=== PATIENT | male | born 1970 | race Caucasian/White ===

== ENCOUNTER 2018-11-24 21:13 | Emergency (ER) | payer MEDICARE, BC ==
--- NOTE | 2018-11-24 21:16 | UC ---
Laceration HPI - HPI Summary HPI Summary: 47 yo male presents with laceration to his left hand. He tells me that he lost his balance earlier today around 1500 and put his hand out against the wall to catch himself. His hand scraped against a screw and he sustained a laceration to his left palm. He cleansed the area with soap and water. His mother applied liquid bandage. Tonight they noticed the area was still quite open and appeared deep. He thinks he may need stitches. He went to the pharmacy today and got an updated tetanus shop. - History Of Current Complaint Stated Complaint: LACERATION ON LEFT HAND Time Seen by Provider: 11/24/18 21:14 Hx Obtained From: Patient Laceration Location: Hand Mechanism Of Injury: Sharp Trauma Onset/Duration: Sudden Onset Severity: Mild Pain Intensity: 3 Pain Scale Used: 0-10 Numeric - Allergies/Home Medications Allergies/Adverse Reactions: Allergies Allergy/AdvReac Type Severity Reaction Status Date / Time acetaminophen [From Vicodin] Allergy Hallucinati Verified 11/24/18 21:29 ons haloperidol Allergy Hallucinati Verified 11/24/18 21:29 ons hydrocodone [From Vicodin] Allergy Hallucinati Verified 11/24/18 21:29 ons contrast dye AdvReac Hallucinati Uncoded 11/24/18 21:29 ons Home Medications: Home Medications Divalproex DR TAB(*) [Depakote DR(*)] 750 mg PO DAILY 11/24/18 [History Confirmed 11/24/18] Lisinopril TAB* [Prinivil TAB*] 10 mg PO DAILY 11/24/18 [History Confirmed 11/24] Metoprolol Tartrate TAB* [Lopressor TAB*] 50 mg PO DAILY 11/24/18 [History Confirmed 11/24/18] Pantoprazole TAB * [Protonix TAB*] 40 mg PO DAILY 11/24/18 [History Confirmed ] Sertraline* [Zoloft*] 50 mg PO DAILY 11/24/18 [History Confirmed 11/24/18] carBAMazepine TAB(*) [TEGretol TAB(*)] 200 mg PO BID 11/24/18 [History Confirmed 11/24/18] PMH/Surg Hx/FS Hx/Imm Hx - Additional Past Medical History Additional PMH: Brain tumor Cardiovascular History: Hypertension Neurological History: Seizures - Surgical History Surgical History: Yes Surgery Procedure, Year, and Place: resection of brain tumor 2003. [employer] shunt. tracheotomy 2003. PED tube - Family History Known Family History: Positive: Non-Contributory - Social History Occupation: Disabled Lives: With Family Alcohol Use: None Substance Use Type: None Smoking Status (MU): Never Smoked Tobacco Review of Systems All Other Systems Reviewed And Are Negative: Yes Constitutional: Positive: Negative Skin: Positive: Other - Left hand laceration Respiratory: Positive: Negative Cardiovascular: Positive: Negative Neurovascular: Positive: Negative Musculoskeletal: Positive: Negative Neurological: Positive: Negative Psychological: Positive: Negative Physical Exam - Summary Physical Exam Summary: GENERAL: NAD. WDWN. No pain distress. SKIN: LEFT HAND: On the palmar aspect at the 2nd there is a 3.0cm laceration. Clean. No FB. No tendon involvement. CHEST: No accessory muscle use. Breathing comfortably and in no distress. CV: Pulses intact. Cap refill <2seconds MSK: FROM at all digits left hand. NEURO: Alert. Sensations intact left hand and all fingers. PSYCH: Age appropriate behavior. Triage Information Reviewed: Yes Vital Signs: Vital Signs: Temp Pulse Resp BP Pulse Ox 98.1 F 70 16 148/80 96 11/24/18 21:23 11/24/18 21:23 11/24/18 21:23 11/24/18 21:23 11/24/18 21:23 Vital Signs Reviewed: Yes Laceration Repair - Laceration Repair 1 Description: Linear Laceration Size After Repair: Length (cm) - 3.0 Anesthesia Used: 1.0% Lido Cleansing Completed Via Routine Prep: Yes Irrigation With Pressure Irrigation Device: Yes Closure Material: Sutures - #4 Closure Method: Single Layer Suture Of: Skin Suture Type: Prolene - 5-0 Laceration Course/Dx - Course/Dx Course Of Treatment: The procedure was explained to the pt and all questions were answered. A time out was performed, witnessed, and signed. The area was irrigated with 200mL sterile saline. 2mL of 2% lidocaine without epi was administered and good anesthetization was achieved. In the usual sterile fashion, FOUR 5-0 prolene interrupted sutures were placed. The wound was bandaged with telfa. Pt tolerated procedure well. - Diagnosis Provider Diagnosis: Laceration of left hand Discharge - Sign-Out/Discharge Documenting (check all that apply): Patient Departure All imaging exams completed and their final reports reviewed: No Studies - Discharge Plan Condition: Stable Disposition: HOME Patient Education Materials: Care For Your Stitches (ED), Laceration (DC) Referrals: Ramón Jeffers DO [Primary Care Provider] - Additional Instructions: If you develop a fever, shortness of breath, chest pain, new or worsening symptoms - please call your PCP or go to the ED immediately. Your blood pressure was high at todays visit. Please see your primary provider within 4 weeks for recheck and re-evaluation. 1) Please keep the area bandaged, clean, dry, and intact for the next 24- 48hours and then keep covered daily with a bandaged until sutures are removed. 2) If you develop a fever, colored or thick discharge, increased pain or swelling - please call your PCP or return for a wound check. 3) Please return in 8-10 days to have your FOUR sutures removed. - Billing Disposition and Condition Condition: STABLE Disposition: Home
[2018-11-24] MEDS ORDERED: Lidocaine 1% MPF* 2 ML VIAL INJ ONE (21:27)
[2018-11-24 21:28] VITALS: BP 148/80
== END 2018-11-24 22:15 | disposition home or self-care (01) ==
LOC: UCCORT 21:13
DX: S61.412A Laceration without foreign body of left hand, initial encounter (principal); W01.118A Fall on same level from slipping, tripping and stumbling with subsequent striking against other sharp object, initial encounter; Y92.9 Unspecified place or not applicable; I10 Essential (primary) hypertension; R56.9 Unspecified convulsions; Z88.5 Allergy status to narcotic agent; Z88.8 Allergy status to other drugs, medicaments and biological substances; Z88.6 Allergy status to analgesic agent; Z91.041 Radiographic dye allergy status
CPT/HCPCS: 12002; 99202; G0463

== ENCOUNTER 2018-12-02 12:19 | Emergency (ER) | payer MEDICARE, BC ==
[2018-12-02 12:39] VITALS: BP 117/78
--- NOTE | 2018-12-02 12:48 | UC ---
Skin Complaint HPI - HPI Summary HPI Summary: 47-year-old male comes in with a chief complaint of suture removal from a laceration on the left hand. Patient had a laceration on 24 November had 4 sutures were placed here. Has had no bleeding everything is healing well. Patient is worried that when the sutures are removed his laceration male brought up as he uses hands a lot. - History of Current Complaint Chief Complaint: UCSkin Time Seen by Provider: 12/02/18 12:40 Stated Complaint: STITCH REMOVAL-DONE HERE Pain Intensity: 0 - Allergy/Home Medications Allergies/Adverse Reactions: Allergies Allergy/AdvReac Type Severity Reaction Status Date / Time acetaminophen [From Vicodin] Allergy Hallucinati Verified 12/02/18 12:34 ons haloperidol Allergy Hallucinati Verified 12/02/18 12:34 ons hydrocodone [From Vicodin] Allergy Hallucinati Verified 12/02/18 12:34 ons contrast dye AdvReac Hallucinati Uncoded 12/02/18 12:34 ons PMH/Surg Hx/FS Hx/Imm Hx Previously Healthy: Yes - Surgical History Surgical History: Yes Surgery Procedure, Year, and Place: resection of brain tumor 2003. [employer] shunt. tracheotomy 2003. PED tube - Family History Known Family History: Positive: Non-Contributory - Social History Alcohol Use: None Substance Use Type: None Smoking Status (MU): Never Smoked Tobacco Review of Systems All Other Systems Reviewed And Are Negative: Yes Constitutional: Positive: Negative Skin: Positive: Other - SEE HPI Eyes: Positive: Negative ENT: Positive: Negative Respiratory: Positive: Negative Cardiovascular: Positive: Negative Gastrointestinal: Positive: Negative Motor: Positive: Other - HX BRAIN TUMOR Neurovascular: Positive: Other - HX BRAIN TUMOR Musculoskeletal: Negative: Arthralgia Neurological: Positive: Other - HX BRAIN TUMOR Psychological: Positive: Negative Is Patient Immunocompromised?: No Physical Exam Triage Information Reviewed: Yes Appearance: Well-Appearing, No Pain Distress, Well-Nourished Vital Signs: Initial Vital Signs Temp 97.5 F 12/02/18 12:36 Pulse 81 12/02/18 12:36 Resp 20 12/02/18 12:36 BP 117/78 12/02/18 12:36 Pulse Ox 95 12/02/18 12:36 Vital Signs Reviewed: Yes Eye Exam: Normal Eyes: Positive: Conjunctiva Clear Neck: Positive: Supple Respiratory: Positive: No respiratory distress Musculoskeletal: Positive: Strength Intact, ROM Intact Neurological: Positive: Alert Psychological: Positive: Age Appropriate Behavior Skin: Positive: Other - On the left palm there is a healing 3 cm laceration with 4 sutures and it. I removed the 2 outer sutures as the patient was nervous that the laceration may open up again over removal for sutures. Course/Dx - Diagnoses Provider Diagnosis: Encounter for removal of sutures Discharge - Sign-Out/Discharge Documenting (check all that apply): Patient Departure All imaging exams completed and their final reports reviewed: No Studies - Discharge Plan Condition: Stable Disposition: HOME Patient Education Materials: Care For Your Stitches (ED), Stitches Removal (ED) Referrals: Ramón Jeffers DO [Primary Care Provider] - Additional Instructions: FOLLOW UP WITH YOUR DOCTOR IF NOT COMPLETELY IMPROVED. HAVE THE REMAING 2 STITCHES REMOVED IN 2 DAYS. GET REEVALUATED SOONER IF WORSE OR ANY QUESTIONS OR CONCERNS. - Billing Disposition and Condition Condition: STABLE Disposition: Home
== END 2018-12-02 12:57 | disposition home or self-care (01) ==
LOC: UCCORT 12:19
DX: S61.412D Laceration without foreign body of left hand, subsequent encounter (principal); X58.XXXD Exposure to other specified factors, subsequent encounter

== ENCOUNTER 2018-12-04 09:32 | Emergency (ER) | payer MEDICARE, BC ==
[2018-12-04 09:49] VITALS: BP 121/78
--- NOTE | 2018-12-04 10:19 | ED ---
Skin Complaint - HPI Summary HPI Summary: 47 yr old male with suture removal visit. He had sutures removed two days ago from the left palm and two were left in due to patient concern over wound opening. It is now day ten since sutures in. The wound has not opened up. Appears to be healing well. - History of Current Complaint Chief Complaint: UCLaceration Time Seen by Provider: 12/04/18 10:11 Stated Complaint: STITCH REMOVAL-DONE HERE Pain Intensity: 0 - Allergy/Home Medications Allergies/Adverse Reactions: Allergies Allergy/AdvReac Type Severity Reaction Status Date / Time haloperidol Allergy Hallucinati Verified 12/04/18 09:51 ons hydrocodone [From Vicodin] Allergy Hallucinati Verified 12/04/18 09:51 ons contrast dye AdvReac Hallucinati Uncoded 12/04/18 09:51 ons PMH/Surg Hx/FS Hx/Imm Hx Cardiovascular History: Reports: Hx Hypertension - Surgical History Surgery Procedure, Year, and Place: resection of brain tumor 2003. BENDER HAND shunt. tracheotomy 2003. PED tube Infectious Disease History: No Infectious Disease History: Reports: Hx of Known/Suspected MRSA - respiratory/ recent years Denies: Traveled Outside the [place] in Last 30 Days - Family History Known Family History: Positive: Non-Contributory - Social History Alcohol Use: None Substance Use Type: Reports: None Smoking Status (MU): Never Smoked Tobacco Review of Systems Constitutional: Negative Positive: Other - sutures in the left hand All Other Systems Reviewed And Are Negative: Yes Physical Exam Triage Information Reviewed: Yes Vital Signs On Initial Exam: Initial Vitals Temp Pulse Resp BP Pulse Ox 98 F 72 16 121/78 96 12/04/18 09:46 12/04/18 09:46 12/04/18 09:46 12/04/18 09:46 12/04/18 09:46 Vital Signs Reviewed: Yes Appearance: Positive: Well-Appearing, No Pain Distress Skin: Positive: Other - two sutures in the left palm hand Head/Face: Positive: Normal Head/Face Inspection Eyes: Positive: EOMI Neck: Positive: Supple Respiratory/Lung Sounds: Positive: Other - normal effort Cardiovascular: Positive: Pulses are Symmetrical in both Upper and Lower Extremities Abdomen Description: Negative: Distended Neurological: Positive: Alert, Oriented to Person Place, Time Psychiatric: Positive: Normal AVPU Assessment: Alert Procedures - Procedure Summary Procedure Summary: the wound left hand appears well approximated and healed. Two prolene sutures were removed by me and bandaide applied. Diagnostics - Vital Signs Vital Signs Temp Pulse Resp BP Pulse Ox 12/04/18 09:46 98 F 72 16 121/78 96 - Laboratory Lab Statement: Any lab studies that have been ordered have been reviewed, and results considered in the medical decision making process. Course/Dx - Course Course Of Treatment: 47 yr old with suture removal. DC home. - Diagnoses Provider Diagnoses: Encounter for removal of sutures Discharge - Sign-Out/Discharge Documenting (check all that apply): Patient Departure All imaging exams completed and their final reports reviewed: No Studies - Discharge Plan Condition: Good Disposition: HOME Patient Education Materials: Stitches Removal (ED) Referrals: Ramón Jeffers DO [Primary Care Provider] - - Billing Disposition and Condition Condition: GOOD Disposition: Home
== END 2018-12-04 10:23 | disposition home or self-care (01) ==
LOC: UCCORT 09:32
DX: Z48.02 Encounter for removal of sutures (principal); I10 Essential (primary) hypertension
CPT/HCPCS: 99211; G0463